=== PATIENT | male | born 1945 | race Caucasian/White ===

== ENCOUNTER → 2024-04-12 09:32 | Outpatient (CLI) | payer MEDICARE, OTHER, SELFPAY ==
--- NOTE | 2024-04-12 09:36 | DI.NM.S_ITS ---
PROCEDURE: NM JEREMIAH PERF SPECT R&S PHARM Rest and pharmacological stress myocardial perfusion SPECT with gated imaging and ejection fraction RADIOPHARMACEUTICAL: 11.1 mCi Tc-99m tetrafosmin IV at rest and 26.7 mCi Tc-99m tetrafosmin IV at peak effect of pharmacological stress. A [id number] was performed. INDICATIONS: CORONARY ARTERY DISEASE TECHNIQUE: Radiopharmaceutical was injected at peak stress test, and also at rest. SPECT images were obtained. SPECT myocardial perfusion images were displayed in short axis, horizontal long axis, and vertical long axis views. Gated images were reviewed using [employer] software. COMPARISON: None. CARDIAC STRESS: A pharmacologic stress test was performed under the supervision of an attending staff, using an infusion of regadenoson 0.4 mg IV. Hemodynamic data: There is normal blood pressure and heart rate response to pharmacologic stress. Symptoms: The patient denied anginal chest pain. EKG: No diagnostic changes of ischemia; no ectopy. FINDINGS: Raw data: There is good myocardial uptake of radiotracer. No significant motion artifacts. Gcfi-mp-[id number] ratio is 0.41 (normal is less than 0.38 for tetrafosmin tracer). Left ventricle function: Gated images demonstrate normal left ventricular wall thickening. No segmental wall motion abnormalities. No transient ischemic dilation; TID is 0.91 (normal less than 1.3). Left ventricle resting end diastolic volume is 151 mL. Left ventricle stress ejection fraction is 72%; normal range is above 45%. Myocardial perfusion: There is normal distribution of activity in the right and left ventricular myocardium. No fixed or reversible perfusion defects. IMPRESSION: Low risk study. No evidence of pharmacologic induced ischemia or scar. Dilated left ventricle based on calculated LVEDV. Normal LV function and wall motion. Dictated by: Sola Carbajal D.O. on 04/12/2024 at 16:56 Approved by: Sola Carbajal D.O. on 04/12/2024 at 16:58
== END ==
PROVIDERS: Referring Provider Internal Medicine Cardiovascular Disease; Visit Provider Internal Medicine Cardiovascular Disease
DX: I25.10 Atherosclerotic heart disease of native coronary artery without angina pectoris (principal); I25.84 Coronary atherosclerosis due to calcified coronary lesion
CPT/HCPCS: 78452; 93017; A9502; J2785

== ENCOUNTER → 2024-04-24 08:58 | Outpatient (CLI) | payer MEDICARE, OTHER, SELFPAY ==
--- NOTE | 2024-04-24 09:02 | DI.ECHO.S_ITS ---
[facility]+ [facility] : : [address] : : [place] : : [id number] : : Phone: [phone] Echocardiogram Report + + :Name: CHRIS DELGADO Study Date: 04/24/2024 Height: 72 in : :[facility] ReadingLocation: Weight: 180 lb : : Gender: Male BSA: 2.0 m2 : :: 1945 Age: 78 yrs BP: 144/81 mmHg: :Reason For Study: AORTIC VALVE INSUFFICIENCY : :Ordering Physician: MEHREEN, : :JACQUELINE Performed By: Brigette Mendosa : :Referring: JACQUELINE VERDE : + + Interpretation Summary The left ventricle is normal in size. The left ventricular ejection fraction is normal. The ejection fraction is estimated to be 55-60%. The right ventricle is borderline dilated. The right ventricular systolic function is normal. There is mild to moderate aortic regurgitation. There is mild tricuspid regurgitation. The right ventricular systolic pressure is estimated to be at least 29 mmHg based on an estimated right atrial pressure of 3 mm Hg. The aortic root is mildly to moderately dilated. The ascending aorta is moderately enlarged. 4.5 cm in diameter. Procedure: A two-dimensional transthoracic echocardiogram with color flow and Doppler was performed. The study quality was technically adequate. There is no prior echocardiogram noted for this patient. The patient was in sinus bradycardia with heart rates between 41-56 bpm during the exam. Left Ventricle: The left ventricle is normal in size. Proximal septal thickening is noted. There is no echo evidence for significant left ventricular outflow tract obstruction. There is no thrombus. The ejection fraction is estimated to be 55-60%. The left ventricular ejection fraction is normal. There are no focal wall motion abnormalities. Diastolic parameters suggest a relaxation abnormality of the left ventricle, consistent with probable normal filling pressures. Right Ventricle: The right ventricle is borderline dilated. The right ventricular systolic function is normal. Atria: The left atrium is moderately dilated. The right atrium is mild to moderately dilated. There is no Doppler evidence for an interatrial shunt. Mitral Valve: There is mild mitral annular calcification. There is trace mitral regurgitation. Aortic Valve: The aortic valve is trileaflet. The aortic valve opens well. The aortic valve is slightly calcified. There is no aortic valve stenosis. There is mild to moderate aortic regurgitation. Tricuspid Valve: The tricuspid valve is normal. There is mild tricuspid regurgitation. The right ventricular systolic pressure is estimated to be at least 29 mmHg based on an estimated right atrial pressure of 3 mm Hg. Pulmonic Valve: The pulmonic valve leaflets are thin and pliable; valve motion is normal. There is trace pulmonic regurgitation. Great Vessels: The aortic root is mildly dilated. The ascending aorta is moderately enlarged. The IVC is of normal diameter and collapses greater than 50% with a sniff. This suggests a low right atrial pressure of 3 mm Hg. Pericardium/ Pleura There is no pericardial effusion. There is no pleural effusion. MMode/2D Measurements & Calculations LVIDd: 5.8 cm LVOT diam: 2.4 cm LVIDs: 3.9 cm Ao root diam: 4.5 cm FS: 32.6 % asc Aorta Diam: 4.5 cm IVSd: 0.80 cm Ao Arch Diam (Prox Trans): 3.2 cm LVPWd: 0.75 cm LV read. diameter/BSA (cm/m^2): 2.8 LV sys. diameter/BSA (cm/m^2): 1.9 LA A2 area: 28.1 cm2 RA long axis: 6.1 cm LA A4 area: 24.9 cm2 RA area: 25.3 cm2 LA length (vol): 6.5 cm RA vol: 88.7 ml LA vol: 91.4 ml RA : 43.5 ml/m2 LA vol index: 44.9 ml/m2 IVC diam: 1.5 cm RVD1 (basal): 4.1 cm RVD2 (mid): 3.6 cm TAPSE: 1.9 cm Doppler Measurements & Calculations Ao V2 max: 169.0 cm/sec LVOT Max Mark: 95.8 cm/sec Ao V2 mean: 113.3 cm/sec LV V1 max P.7 mmHg Ao max P.4 mmHg LV V1 VTI: 22.3 cm Ao mean P.8 mmHg ROGELIO(I,D): 2.5 cm2 Ao V2 VTI: 38.5 cm ROGELIO(V,D): 2.5 cm2 sev ratio: 0.58 ROGELIO indexed to BSA (cm^2/m^2): 1.2 AI P1/2t: 1082 msec AI dec slope: 141.8 cm/sec2 MV E max mark: 54.5 cm/sec TR max mark: 253.4 cm/sec MV A max mark: 56.5 cm/sec TR max P.7 mmHg MV E/A: 0.96 PA V2 max: 94.0 cm/sec Med Peak E' Mark: 6.1 cm/sec PA V2 mean: 68.0 cm/sec E/E' med: 9.0 PA mean P.0 mmHg Lat Peak E' Mark: 12.2 cm/sec PA pr(Accel): 36.2 mmHg E/E' lat: 4.5 E/e' average: 6.7 MV dec time: 0.22 sec SV(LVOT): 96.9 ml Reading Physician:05:05 PM
--- NOTE | 2024-04-24 09:03 | DI.US.S_ITS ---
PROCEDURE: US ABD AORTA ANEURYSM SCREEN INDICATIONS: NONRHEUMATIC AORTIC VALVE INSUFFICIENCY TECHNIQUE: Real time scanning was performed of the aorta and iliac arteries, with image documentation. COMPARISON: None. FINDINGS: Aorta: Proximal abdominal aorta is not well visualized. Mid-aorta measures 2.4 cm. Distal aortic diameter is 1.8 cm. Iliac arteries: Right common iliac artery measures 1.2 cm. Left common iliac artery measures 1.2 cm. IMPRESSION: No evidence of AAA involving visualized portions of the abdominal aorta. Dictated by: Femi Fontenot M.D. on 04/24/2024 at 10:58 Approved by: Femi Fontenot M.D. on 04/24/2024 at 10:59
== END ==
PROVIDERS: PCP Nurse Practitioner Acute Care; Referring Provider Internal Medicine Cardiovascular Disease; Visit Provider Internal Medicine Cardiovascular Disease
DX: I08.3 Combined rheumatic disorders of mitral, aortic and tricuspid valves (principal); I71.21 Aneurysm of the ascending aorta, without rupture; I77.89 Other specified disorders of arteries and arterioles
CPT/HCPCS: 76706; 93306

== ENCOUNTER → 2024-10-26 12:21 | Outpatient (CLI) | payer MEDICARE, OTHER, SELFPAY ==
--- NOTE | 2024-10-26 12:23 | DI.ECHO.S_ITS ---
[facility]---------+ [facility] : : [address] : : [place] : : [id number] : : Phone: [phone] Echocardiogram Report + + :Name: CHRIS DELGADO Study Date: 10/26/2024 Height: 72 in : :[facility] ReadingLocation: Weight: 183 lb : : Gender: Male BSA: 2.1 m2 : :: 1945 Age: 78 yrs BP: 163/102 mmHg: :Reason For Study: AORTIC VALVE DISORDER : :Ordering Physician: BOB, : :OSCAR Performed By: Brigette Mendosa : :Referring: OSCAR ROJAS : + + Interpretation Summary Limited echo: The left ventricle is normal in size. The left ventricular ejection fraction is normal. The ejection fraction is estimated to be 60-65%. The right ventricle is normal in size and function. The aortic valve is trileaflet. The aortic valve is slightly calcified. There is mild to moderate aortic regurgitation. Previously mild to moderate AR. Aortic root mild to moderately dilated about 4.5 cm which is stable. The ascending aorta is moderately enlarged. 4.5 cm without any significant change from the previous study. BP: 163/102 mmHg Procedure: A two-dimensional transthoracic echocardiogram with color flow and Doppler was performed in limited views only to assess aortic aneurysm and aortic valve disorder.. The study quality was technically adequate. Comparison is made with the echocardiogram of 04/24/2024. The patient was in sinus rhythm with heart rates between 60-61 bpm during the exam. Left Ventricle: The left ventricle is normal in size. Proximal septal thickening is noted. There is no thrombus. The left ventricular ejection fraction is normal. The ejection fraction is estimated to be 60-65%. There are no focal wall motion abnormalities. Right Ventricle: The right ventricle is normal in size and function. Aortic Valve: The aortic valve is trileaflet. The aortic valve is slightly calcified. The aortic valve opens well. There is no aortic valve stenosis. There is mild to moderate aortic regurgitation. Compared to the prior echo study, there has been no change in the severity of aortic regurgitation. Great Vessels: Aortic root mild to moderately dilated about 4.5 cm which is stable. The ascending aorta is moderately enlarged. Pericardium/ Pleura There is no pericardial effusion. There is no pleural effusion. MMode/2D Measurements & Calculations LVIDd: 5.2 cm LVOT diam: 2.4 cm LVIDs: 3.3 cm Ao root diam: 4.5 cm FS: 36.1 % asc Aorta Diam: 4.5 cm IVSd: 1.1 cm LVPWd: 0.97 cm LV read. diameter/BSA (cm/m^2): 2.5 LV sys. diameter/BSA (cm/m^2): 1.6 Doppler Measurements & Calculations Ao V2 max: 138.8 cm/sec LVOT Max Mark: 104.0 cm/sec Ao V2 mean: 96.9 cm/sec LV V1 max P.3 mmHg Ao max P.7 mmHg LV V1 VTI: 21.1 cm Ao mean P.2 mmHg ROGELIO(I,D): 3.2 cm2 Ao V2 VTI: 29.5 cm ROGELIO(V,D): 3.3 cm2 sev ratio: 0.72 ROGELIO indexed to BSA (cm^2/m^2): 1.5 AI P1/2t: 836.2 msec AI dec slope: 186.7 cm/sec2 SV(LVOT): 93.2 ml Reading Physician:04:33 PM
== END ==
PROVIDERS: PCP Nurse Practitioner Acute Care; Referring Provider Nurse Practitioner Acute Care; Visit Provider Nurse Practitioner Family
DX: I35.9 Nonrheumatic aortic valve disorder, unspecified (principal); I71.21 Aneurysm of the ascending aorta, without rupture; I77.89 Other specified disorders of arteries and arterioles
CPT/HCPCS: 93307